=== PATIENT | female | born 1960 | race Caucasian/White ===

== ENCOUNTER 2016-06-19 05:42 | Day surgery (SDC) | payer OTHER ==
[2016-06-19 06:22] VITALS: O2SAT 100
[2016-06-19] MEDS ORDERED: Lactated Ringers 1,000 ML IV SCH (06:30)
[2016-06-19] MEDS ORDERED: Ketamine HCl 50 MG/ML IJ ONE (08:00)
[2016-06-19] MEDS ORDERED: DIPRIVAN 200 MG/20 ML IV ONE ×2 (08:00)
[2016-06-19 08:26] VITALS: BP 144/91; PULSE 70
--- NOTE | 2016-06-19 09:28 | OP ---
SURGERY DATE/TIME: 06/19/2016 0705 PREOPERATIVE DIAGNOSES: 1) History of colon polyps. 2) Crohn's disease. POSTOPERATIVE DIAGNOSES: 1) Normal colon. 2) Poor bowel prep. PROCEDURE: Colonoscopy. SURGEON: Christiano Luciano M.D. ANESTHESIA: MAC by Azael Mcbride CRNA. ESTIMATED BLOOD LOSS: None. SPECIMENS: None. DESCRIPTION OF PROCEDURE: After informed written consent was obtained, the patient was taken to the endoscopy suite. She underwent monitored anesthesia and digital rectal exam showed normal sphincter tone and no internal lesions. The scope was inserted in the rectum and sequentially the entire colonic mucosa was traversed. The level of cecum was reached and verified with direct visualization of the ileocecal valve. There was a large amount of semiliquid stool present throughout most of the length of the colon. The mucosal structures that were able to be inspected showed no gross abnormalities, there were no large polyps or other obvious lesions. The prep was noted to be poor. Upon withdrawal no obvious lesions were encountered. The scope was removed and the patient was transferred to the recovery room in excellent condition.
== END 2016-06-19 08:30 | disposition home or self-care (01) ==
LOC: SDC 05:42
PROVIDERS: ATTEND Family Medicine
PROC: 0DJD8ZZ Inspection of Lower Intestinal Tract, Via Natural or Artificial Opening Endoscopic (ICD-10-PCS; principal; 2016-06-19)
DX: Z86.010 Personal history of colon polyps (principal); K50.90 Crohn's disease, unspecified, without complications
CPT/HCPCS: 00810; J2704

== ENCOUNTER 2016-12-18 05:52 | Day surgery (SDC) | payer OTHER ==
[2016-12-18] MEDS ORDERED: DIPRIVAN 200 MG/20 ML IV ONE (05:53)
[2016-12-18] MEDS ORDERED: Ketamine HCl 50 MG/ML IV ONE (05:53)
[2016-12-18 06:27] VITALS: O2SAT 98
[2016-12-18] MEDS ORDERED: Lactated Ringers 1,000 ML IV SCH (06:30)
[2016-12-18 08:25] VITALS: BP 117/64; PULSE 68
--- NOTE | 2016-12-18 10:39 | OP ---
SURGERY DATE/TIME: 12/18/2016 0700 PREOPERATIVE DIAGNOSIS: Dysphagia. POSTOPERATIVE DIAGNOSIS: Normal exam. PROCEDURE: EGD. SURGEON: Christiano Luciano M.D. ANESTHESIA: MAC by Guillermo Mcbride CRNA. ESTIMATED BLOOD LOSS: None. SPECIMENS: None. DESCRIPTION OF PROCEDURE: After informed written consent was obtained, the patient was taken to the endoscopy suite. She underwent monitored anesthesia and a bite block was inserted. The endoscope was inserted into the posterior oropharynx and under direct visualization the esophagus was traversed. There were no obvious mucosal abnormalities in the esophageal region. The gastroesophageal junction appeared within normal limits. Upon entering the stomach there was normal rugated gastric mucosa free of any lesions or defects. The pylorus was traversed and the first and second portions of the duodenum was within normal limits. Upon withdrawal again careful mucosal inspection revealed no gross abnormalities. The scope was removed and the patient was transferred to the recovery room in excellent condition.
== END 2016-12-18 08:30 | disposition home or self-care (01) ==
LOC: SDC 05:52
PROVIDERS: ATTEND Family Medicine
PROC: 0DJ08ZZ Inspection of Upper Intestinal Tract, Via Natural or Artificial Opening Endoscopic (ICD-10-PCS; principal; 2016-12-18)
DX: R13.10 Dysphagia, unspecified (principal)
CPT/HCPCS: 00740; J2704

== ENCOUNTER 2022-08-12 09:20 | Day surgery (SDC) | payer OTHER ==
--- NOTE | 2022-08-12 09:14 | HP ---
DATE OF SURGERY: 08/12/2022 HISTORY OF PRESENT ILLNESS: The patient is a 62-year-old problem with food getting stuck in upper esophagus, sometimes even solids at time. Last upper endoscopy in 2006. Family history negative for esophageal cancer. PAST MEDICAL HISTORY: Partial plate dentures, hypertension, multiple sclerosis, hyperlipidemia, diabetes mellitus type II, irritable bowel Crohn's disease. PAST SURGICAL HISTORY: Coronary artery disease with stent placed in the past. Inguinal hernia repair. Ankle fracture in the past. Pilonidal cyst in the past. MEDICATIONS: Hydrocodone/acetaminophen, Xanax, spironolactone, Abilify, sertraline, vitamin D3, Benadryl, Metamucil, Norvasc, clonidine, aspirin, Toprol. ALLERGIES: ERYTHROMYCIN. LYRICA. PENICILLIN. SULFA. TETRACYCLINE. FAMILY HISTORY: Negative esophageal cancer. SOCIAL HISTORY: Former smoker. No alcohol abuse. REVIEW OF SYSTEMS: Fourteen systems reviewed per multiple medical problems as noted above. PHYSICAL EXAMINATION: VITALS: Height 5'5". BMI 33.38. GENERAL: A chronically ill female. HEENT: Sclerae nonicteric. EOMI. Oropharynx mucous membranes moist. NECK: No JVD. CHEST: Equal excursion, nonlabored breathing. CVS: Regular rate and rhythm. ABDOMEN: Soft. EXTREMITIES: No edema. NEURO: Alert. She has limitation from her MS. PSYCH: Appropriate mood and affect. SKIN: Dry. IMPRESSION: Dysphagia upper esophagus. I recommend EGD possible biopsy possible dilatation. General risk of bleeding or infection possibly requiring open procedure, risk of perforation possibly requiring further procedure or transfer for stent placement. Possibly no improvement in swallowing possibly requiring other procedures, dilation or referrals. Possibility of no narrowing to dilate or possible neurological or functional problem particularly given history of MS. Possibility dilatation may not improve her swallowing. If dilatation does improve might dilatation again down the road. She understands and agrees to the planned procedure. Will proceed with EGD possible biopsy possible dilatation as an outpatient.
[~2022-08-12 09:20] MED LIST: Lactated Ringers 1,000 ML IV SCH
[2022-08-12] MEDS ORDERED: Lactated Ringers 1,000 ML IV ONE (09:53)
[2022-08-12] MEDS ORDERED: DIPRIVAN 200 MG/20 ML IV ONE ×2 (11:44→11:57)
[2022-08-12] MEDS ORDERED: Versed 2 MG/2 ML Injection ONE (11:44)
[2022-08-12 12:37] VITALS: O2SAT 96
[2022-08-12 12:48] VITALS: BP 130/94; PULSE 53
--- NOTE | 2022-08-13 08:05 | OP ---
SURGERY DATE/TIME: 08/12/2022 1142 PREOPERATIVE DIAGNOSIS: Dysphagia. POSTOPERATIVE DIAGNOSES: 1) Minimal to mild gastritis. 2) Symptomatic proximal esophageal narrowing and spasm. PROCEDURES: 1) EGD with cold biopsy to antrum to evaluate for Helicobacter pylori. 2) Cold biopsy distal esophageal erythema. 3) Cold biopsy mid esophagus to evaluate for eosinophilic esophagitis. 4) Esophageal dilatation proximal esophageal narrowed and spasm area (size 20 balloon dilator). SURGEON: Dr. Guillermo Kumar. ANESTHESIA: MAC. ESTIMATED BLOOD LOSS: Minimal. INDICATIONS: As noted above. Risks and benefits explained in detail and not limited to and consent was obtained. DESCRIPTION OF PROCEDURE AND FINDINGS: The patient is taken to the endoscopy room. MAC anesthesia introduced. After official time out and no disagreement with planned procedure, bite block positioned. Video gastroscope easily passed down the oropharynx. There was a little bit of proximal esophageal narrowing and spasm. She is having symptoms here. It was felt worthwhile to dilate this at the end of the procedure. The scope was able to be passed back through here down to the junction of the second and third portion of the duodenum. Duodenum grossly unremarkable. The scope is carefully withdrawn. Back in the stomach had some mild gastric erythema and some congestion. Cold biopsy taken to evaluate for some minimal to mild gastritis and to evaluate for Helicobacter pylori. Good hemostasis noted. On retroflex, the gastroesophageal junction snug against the scope. The scope is straightened. The gastroesophageal junction is about 39 cm. In the distal esophagus, there is no gross evidence of erosions or Mancia's. There was a slight pinkness of the distal esophagus. Cold biopsy is taken to evaluate for inflammation. Good hemostasis noted. Random cold biopsies taken in the mid esophagus to evaluate for eosinophilic esophagitis. Good hemostasis noted. Otherwise again it was felt this proximal esophageal narrowing warranted dilatation. There were no signs of any obvious mass or lesion to biopsy. The scope is passed back down the stomach. A 20 balloon dilator carefully inserted. It was pulled back up to the proximal esophageal narrowed area where it was carefully inflated. First stage for 30 seconds size 18, second stage 30 seconds size 19, final stage size 20 balloon dilator for 2 minutes. Balloon catheter then released and withdrawn. The scope much more easily passed through this area back into the stomach and then carefully withdrawn. There was small abrasion in the mucosa but there did not appear to be any evidence of any full thickness issues secondary to dilatation. Appeared to have adequate hemostasis. The scope is withdrawn. Findings discussed with the family out in the waiting area.
== END 2022-08-12 12:57 | disposition home or self-care (01) ==
LOC: SDC 09:20
PROVIDERS: ATTEND Surgery
DX: K29.70 Gastritis, unspecified, without bleeding (principal); R13.10 Dysphagia, unspecified; E11.9 Type 2 diabetes mellitus without complications; K22.2 Esophageal obstruction
CPT/HCPCS: 82947; C1726; J2250; J2704

== ENCOUNTER 2022-12-20 14:34 | Emergency (ER) | payer OTHER ==
--- NOTE | 2022-12-20 14:43 | ERPHSYRPT ---
- History of Present Illness Time Seen by Provider: 12/20/22 14:42 Source: patient Exam Limitations: no limitations Physician History: This is a 62-year-old obese white female patient of Dr. Alonso who presents with numbness in her right upper extremity and tongue that deviated to the right beginning greater than 24 hours. She states that on 12/19/2022, in the morning, she noticed the symptoms being present. The symptom of numbness is nowhere else in her body. The tongue deviation to the right has significantly improved per her report. There is still some numbness in her right upper extremity. She did not hit her head. She has no history of a CVA. 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 Patient drove herself to the emergency depar tment. She has been somewhat nauseated intermittently without vomiting. She denies chest pain, she denies shortness of breath. She also denies fevers and chills. She denies vomiting and diarrhea. She has no abdominal pain. She has no headache. Patient has multiple medical problems including hypertension, diabetes, irritable bowel syndrome, Crohn's disease and depression. Timing/Duration: yesterday Severity: mild Character of Deficits: RUE (Numbness mild) Deficits: no difficulties Baseline/Normal Cognition: alert oriented x 3 Current Cognition: alert oriented x 3 Baseline Gait: uses cane Associated Symptoms: paresthesia (Right upper extremity which is only in the right upper extremity and has improved in the last 24 hours) Allergies/Adverse Reactions: erythromycin base [Erythromycin Base] Allergy (Verified 12/20/22 14:46) lidocaine Allergy (Verified 12/20/22 14:46) Penicillins Allergy (Verified 12/20/22 14:46) pregabalin [From Lyrica] Allergy (Verified 12/20/22 14:46) Sulfa (Sulfonamide Antibiotics) Allergy (Verified 12/20/22 14:46) Tetracyclines Allergy (Verified 12/20/22 14:46) Home Medications: Baclofen 10 mg [Lioresal 10 mg] 10 mg PO BID 01/06/13 [History] Metoprolol Succinate 100 mg [Toprol Xl 100 MG] 100 mg PO DAILY 01/06/13 [History] Ropinirole HCl [Requip] 1 mg PO HS 01/06/13 [History] Aspirin 81 mg PO DAILY 06/13/16 [History] Calcium Carb,Gluc/Mag Ox,Gluc [Calcium Magnesium Caplet] 1 each PO DAILY 06/13/16 [History] Diphenhydramine HCl 25 mg [Benadryl 25 mg Capsule] 75 mg PO HS 06/13/16 [History] Metformin HCl 500 mg [Glucophage 500 MG] 500 mg PO BID 06/13/16 [History] Sertraline HCl [Zoloft] 100 mg PO DAILY 06/13/16 [History] Ergocalciferol (Vitamin D2) [Vitamin D2] 50,000 unit PO Q7D 11/22/16 [History] Hydrocodone/Acetaminophen [Hydrocodone-Acetamin 5-325 mg] 1 each PO Q4HPRN PRN 11/22/16 [History] Amlodipine Besylate 5 mg [Norvasc 5 mg] 5 mg DAILY 08/12/22 [History] Clonidine HCl 0.1 mg [Clonidine 0.1 mg Tablet] 0.1 mg PO BID 08/12/22 [History] Ezetimibe 10 mg [Zetia 10 MG] 10 mg DAILY 08/12/22 [History] Psyllium Packet [Metamucil PACKET] 1 pkt PO DAILY 08/12/22 [History] Spironolactone 25 mg [Aldactone 25 MG] 25 mg PO DAILY 08/12/22 [History] Hx Tetanus, Diphtheria Vaccination/Date Given: Yes Hx Influenza Vaccination/Date Given: No Hx Pneumococcal Vaccination/Date Given: No Travel Risk - International Travel Have you traveled outside of the country in past 3 weeks: No - Coronavirus Screening Are you exhibiting any of the following symptoms?: No Close contact with a COVID-19 positive Pt in past 14-21 Days: No - Review of Systems Constitutional: No Symptoms Eyes: No Symptoms Ears, Nose, & Throat: No Symptoms Respiratory: No Symptoms Cardiac: No Symptoms Abdominal/Gastrointestinal: No Symptoms Genitourinary Symptoms: No Symptoms Musculoskeletal: No Symptoms Skin: No Symptoms Neurological: Other (Numbness to the right upper extremity) Psychological: No Symptoms Endocrine: No Symptoms Hematologic/Lymphatic: No Symptoms Immunological/Allergic: No Symptoms All Other Systems: Reviewed and Negative - Past Medical History Pertinent Past Medical History: Yes Neurological History: Other ENT History: No Pertinent History Cardiac History: Hypertension, Other Respiratory History: No Pertinent History Endocrine Medical History: Other Musculoskeletal History: Fractures GI Medical History: Irritable Bowel, Crohns Disease History: No Pertinent History Psycho-Social History: Depression Female Reproductive Disorders: No Pertinent History Other Medical History: DX'D WITH MULTIPLE SCLEROSIS 1989 (RELAPSING/REMITTING WITH NO RECENT RELAPSE AND USUALLY ONLY INVOLVES HER EYES). OTHER PMHX CROHN'S, INSULIN RESISTANT, ELEVATED TRIGLYCERIDES, AORTIC ANEURYSM, ECZEMA, PSORIASIS - Past Surgical History Past Surgical History: Yes Neuro Surgical History: No Pertinent History Cardiac: Cardiac Catheterization Respiratory: No Pertinent History Gastrointestinal: Hernia Repair Genitourinary: No Pertinent History Musculoskeletal: Orthopedic Surgery Female Surgical History: No Pertinent History Other Surgical History: LEEP PROCEDURE. PYLONITAL CYST,right ankle repair with plates,pins and screws. removal of lipoma. tumor removed to right foot with hammer toe repair. EGD,colonsocopy times 2 - Social History Smoking Status: Former smoker Exposure to second hand smoke: No Drug Use: none Patient Lives Alone: No - Nursing Vital Signs Nursing Vital Signs: Initial Vital Signs Temperature 96.8 F 12/20/22 14:35 Pulse Rate 65 12/20/22 14:35 Blood Pressure 148/88 12/20/22 14:35 O2 Sat by Pulse Oximetry 97 12/20/22 14:35 Pain Scale Pain Intensity 0 - Mihir Coma Scale Best Eye Response ([place]): (4) open spontaneously Best Verbal Response ([place]): (5) oriented Best Motor Response ([place]): (6) obeys commands Mihir Total: 15 - Physical Exam General Appearance: no apparent distress, alert, anxiety, obese Eye Exam: bilateral eye: normal inspection, PERRL, EOMI Ears, Nose, Throat Exam: normal ENT inspection, TMs normal, pharynx normal, moist mucous membranes Neck Exam: normal inspection, non-tender, supple, full range of motion Respiratory: normal breath sounds, lungs clear, airway intact, No chest tenderness, No respiratory distress Cardiovascular: regular rate/rhythm, normal heart sounds, normal peripheral pulses Gastrointestinal: soft, normal bowel sounds, No tenderness Pelvic Exam: not done Rectal Exam: not done Back Exam: normal inspection, normal range of motion, No CVA tenderness, No vertebral tenderness Extremity Exam: normal inspection, normal range of motion, pelvis stable Mental Status: alert, oriented x 3, cooperative anesthesiology tech Exam: normal hearing, normal speech, abnormal eye position, tongue midline Coordination/Gait: normal finger to nose, normal gait, normal cerebellar function Motor/Sensory: no motor deficit, no sensory deficit Skin Exam: normal color, warm, dry SpO2 Interpretation: normal O2 Delivery: Room Air - Course Nursing assessment & vital signs reviewed: Yes EKG Interpreted by Me: RATE (65), Sinus Rhythm, NORMAL AXIS, NORMAL INTERVALS, NORMAL QRS, NORMAL ST-T, Other (No acute ischemic changes on today's twelve-lead EKG.) Ordered Tests: Active Orders 24 hr Category Date Time 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 Care 12/20/22 14:47 Active EKG-ER Only STAT Care 12/20/22 14:46 Active IV Insertion STAT Care 12/20/22 14:46 Active NPO (ED) STAT Care 12/20/22 14:46 Active Pulse Oximetry (ED) STAT Care 12/20/22 14:46 Active HEAD WITHOUT CONTRAST [CT] Stat Exams 12/20/22 14:46 Completed CBC W DIFF Stat Lab 12/20/22 14:15 Completed CMP Stat Lab 12/20/22 14:15 Completed MAG [MAGNESIUM] Stat Lab 12/20/22 14:15 Completed Lab/Rad Data: Laboratory Result Diagrams 12/20/22 14:15 12/20/22 14:15 Laboratory Results 12/20/22 12/20/22 12/20/22 Range/Units 14:15 14:15 14:15 WBC 7.2 (4.0-10.5) x10^3/uL RBC 4.36 (4.1-5.4) x10^6/uL Hgb 13.7 (12.0-16.0) g/dL Hct 40.9 (35-47) % MCV 93.8 (78-100) fL MCH 31.4 (26-32) pg MCHC 33.5 (32-36) g/dL RDW 13.6 (11.5-14.0) % Plt Count 177 (150-450) x10^3/uL MPV 9.5 (7.5-11.0) fL Gran % 54.4 (36.0-66.0) % Immature Gran % (Auto) 0.1 (0.00-0.4) % Nucleat RBC Rel Count 0.0 (0.00-0.1) % Eos # (Auto) 0.16 (0-0.5) x10^3/uL Immature Gran # (Auto) 0.01 (0.00-0.03) x10^3u/L Absolute Lymphs (auto) 2.51 (1.0-4.6) x10^3/uL Absolute Monos (auto) 0.57 (0.0-1.3) x10^3/uL Absolute Nucleated RBC 0.00 (0.00-0.01) x10^3u/L Lymphocytes % 35.0 (24.0-44.0) % Monocytes % 7.9 (0.0-12.0) % Eosinophils % 2.2 (0.00-5.0) % Basophils % 0.4 (0.0-0.4) % Absolute Granulocytes 3.89 (1.4-6.9) x10^3/uL Basophils # 0.03 (0-0.4) x10^3/uL Sodium 136 L (137-145) mmol/L Potassium 4.2 (3.5-5.1) mmol/L Chloride 101 (98-107) mmol/L Carbon Dioxide 26 (22-30) mmol/L Anion Gap 13.1 (5-15) MEQ/L BUN 9 (7-17) mg/dL Creatinine 0.76 (0.52-1.04) mg/dL Estimated GFR > 60.0 ML/MIN Glucose 127 H (74-106) mg/dL Calcium 9.1 (8.4-10.2) mg/dL Magnesium 1.9 (1.6-2.3) mg/dL Total Bilirubin 0.30 (0.2-1.3) mg/dL AST 30 (14-36) U/L ALT 25 (0-35) U/L Alkaline Phosphatase 57 (38-126) U/L Serum Total Protein 7.7 (6.3-8.2) g/dL Albumin 4.3 (3.5-5.0) g/dL - Progress Progress: improved, re-examined Progress Note: 12/20/22 15:59 This patient's medical issue is 1 of moderate complexity. The level complex in the work-up performed is based on review of the patient's past medical history, review the patient's medication list, review the patient's drug allergy list, history present illness and physical findings on examination. The work-up in this patient includes placement of intravenous line, twelve-lead EKG, troponin level, CBC, CMP, PT/INR, T4 and TSH, CT scan of the head and urinalysis. 12/20/22 16:06 I reviewed and interpreted the patient's laboratory data. There is no evidence of any acute, emergent laboratory study results. The CT scan of the head without contrast was interpreted by the radiologist and I reviewed the impression. There is reported a normal CT scan of the head without contrast. Counseled pt/family regarding: lab results, diagnosis, need for follow-up, rad results Medical Desision Making - Diagnostic Testing Diagnostic test were ordered, analyzed, and reviewed by me: Yes Radiological Interpretation: Reviewed by me, Teleradiologist Report - Risk of complications Low Risk: Low risk of morbidity from additional dx testing or treatment - Departure Departure Disposition: Home Clinical Impression: Right arm numbness Condition: Stable Critical Care Time: No Referrals: LEEROY ALONSO MD [Primary Care Provider] - Follow up/PCP as directed Additional Instructions: Drink plenty of fluids. Take your medication as prescribed. Call your primary care provider on 12/23/2022 to make arrangements for further evaluation management. Return to the emergency department if the symptoms recur.
[2022-12-20 14:46] VITALS: TEMP 96.8
[2022-12-20 14:59] LABS: Absolute Neutrophil Ct (ANC) 3.89 x10^3/uL (1.4-6.9); BASOPHIL % 0.4 % (0.0-0.4); Basophil (Absolute #) 0.03 x10^3/uL (0-0.4); Eosinophil % 2.2 % (0.00-5.0); Eosinophil (Absolute #) 0.16 x10^3/uL (0-0.5); Hematocrit 40.9 % (35-47); Hemoglobin 13.7 g/dL (12.0-16.0); IMMATURE GRAN # 0.01 x10^3u/L (0.00-0.03); IMMATURE GRAN % 0.1 % (0.00-0.4); Lymphocyte (Absolute #) 2.51 x10^3/uL (1.0-4.6); Mean Cell Volume 93.8 fL (78-100); Mean Corpuscular Hemoglobin 31.4 pg (26-32); Mean Corpuscular Hgb Concent. 33.5 g/dL (32-36); Mean Platelet Volume 9.5 fL (7.5-11.0); Monocyte (Absolute #) 0.57 x10^3/uL (0.0-1.3); Monocytes % 7.9 % (0.0-12.0); Neutrophil % 54.4 % (36.0-66.0); Platelet Count 177 x10^3/uL (150-450); Red Blood Count 4.36 x10^6/uL (4.1-5.4); Red Cell Distribution Width 13.6 % (11.5-14.0); White Blood Count 7.2 x10^3/uL (4.0-10.5)
--- NOTE | 2022-12-20 15:35 | XRAY ---
Indication: Right upper extremity weakness 6 days. Multiple contiguous axial images obtained through the head without contrast. Comparison: None Normal appearing brain parenchyma, ventricles, and bony calvarium. Visualized paranasal sinuses and mastoid air cells are clear. Impression: Normal CT head without contrast exam.
[2022-12-20 15:37] LABS: ALBUMIN 4.3 g/dL (3.5-5.0); ALKALINE PHOSPHATASE 57 U/L (38-126); ANION GAP 13.1 MEQ/L (5-15); BLOOD UREA NITROGEN 9 mg/dL (7-17); CHLORIDE 101 mmol/L (98-107); Calcium 9.1 mg/dL (8.4-10.2); Carbon Dioxide 26 mmol/L (22-30); Creatinine 1 0.76 mg/dL (0.52-1.04); EST GLOMERULAR FILTRATION RATE > 60.0 ML/MIN; Glucose 127 mg/dL (74-106); Potassium 4.2 mmol/L (3.5-5.1); SGOT/AST 30 U/L (14-36); SGPT/ALT 25 U/L (0-35); SODIUM 136 mmol/L (137-145); Total Protein 7.7 g/dL (6.3-8.2)
[2022-12-20 16:10] VITALS: BP 105/70; PULSE 62; RESP 21; O2SAT 96
== END 2022-12-20 16:41 | disposition home or self-care (01) ==
LOC: ED 14:34
DX: R20.2 Paresthesia of skin (principal); I10 Essential (primary) hypertension; E11.9 Type 2 diabetes mellitus without complications; Z79.84 Long term (current) use of oral hypoglycemic drugs; Z79.899 Other long term (current) drug therapy
CPT/HCPCS: 36000; 36415; 70450; 80053; 83735; 85025; 93005; 93041; 94760; 99284

== ENCOUNTER 2023-09-09 20:56 | Emergency (ER) | payer OTHER ==
[2023-09-09 21:14] VITALS: TEMP 97.2
--- NOTE | 2023-09-09 21:46 | ERPHSYRPT ---
- History of Present Illness Time Seen by Provider: 09/09/23 21:30 Source: patient Exam Limitations: no limitations Patient Subjective Stated Complaint: leg swelling primarily in the R leg that started on august 19 but worsening swelling in the last 2 days Triage Nursing Assessment: pt ambulatory to bed by self, friend at bedside, pt alert and oriented x3, pt presents with R leg swelling of +2 pitting edema that has worsened over the last 2 days, afebrile, +2 strong pedal pulses bilaterally, pt c/o pain from knee down to her toes on the R leg. reddness noted on bilateral lower legs Physician History: 63-year-old female presents to emergency department for evaluation of purpura to her right lower extremity just proximal to her ankle. Patient has petechiae forming at the left lower leg just proximal to the ankle as well. However the right is worse than the left in terms of pain. No trauma no fever. Patient has been walking more than normal. Patient currently on Xarelto for atrial fibrillation. She also has scattered bruising throughout both upper extremities which she attributes to her blood thinner. No other complaints. No chest pain or shortness of breath. No nausea vomiting or diaphoresis. Patient concerned with circulation. However patient's neurovascular status is intact. at bedside. They voiced no other complaints or concerns at this time. Portions of this note were created with voice recognition technology. There may be grammatical, spelling, punctuation or sound alike errors Timing/Duration: today Severity: moderate Modifying Factors: Improves With: nothing Associated Symptoms: denies symptoms Allergies/Adverse Reactions: erythromycin base [Erythromycin Base] Allergy (Verified 09/09/23 21:05) Penicillins Allergy (Verified 09/09/23 21:05) pregabalin [From Lyrica] Allergy (Verified 09/09/23 21:05) Sulfa (Sulfonamide Antibiotics) Allergy (Verified 09/09/23 21:05) Tetracyclines Allergy (Verified 09/09/23 21:05) Home Medications: Baclofen 10 mg [Lioresal 10 mg] 10 mg PO BID 01/06/13 [History] Metoprolol Succinate 100 mg [Toprol Xl 100 MG] 100 mg PO DAILY 01/06/13 [History] Ropinirole HCl [Requip] 3 mg PO HS 01/06/13 [History] Aspirin 81 mg PO DAILY 06/13/16 [History] Calcium Carb,Gluc/Mag Ox,Gluc [Calcium Magnesium Caplet] 1 each PO HS 06/13/16 [History] Sertraline HCl [Zoloft] 50 mg PO DAILY 06/13/16 [History] Ergocalciferol (Vitamin D2) [Vitamin D2] 50,000 unit PO Q7D 11/22/16 [History] Hydrocodone/Acetaminophen [Hydrocodone-Acetamin 5-325 mg] 1 each PO Q4HPRN PRN 11/22/16 [History] Amlodipine Besylate 5 mg [Norvasc 5 mg] 5 mg PO DAILY 08/12/22 [History] Psyllium Packet [Metamucil PACKET] 1 pkt PO DAILY 08/12/22 [History] Spironolactone 25 mg [Aldactone 25 MG] 25 mg PO DAILY 08/12/22 [History] Gabapentin 100 mg PO TID 09/09/23 [History] Rivaroxaban [Xarelto] 20 mg PO DAILY 09/09/23 [History] Hx Tetanus, Diphtheria Vaccination/Date Given: Yes Hx Influenza Vaccination/Date Given: Yes Hx Pneumococcal Vaccination/Date Given: No Immunizations Up to Date: No Travel Risk - International Travel Have you traveled outside of the country in past 3 weeks: No - Emerging Infectious Disease Are you exhibiting symptoms associated with any current EIDs: No - Review of Systems Constitutional: No Symptoms, No Fever, No Chills Eyes: No Symptoms Ears, Nose, & Throat: No Symptoms Respiratory: No Symptoms, No Cough, No Dyspnea Cardiac: No Symptoms, No Chest Pain, No Edema, No Syncope Abdominal/Gastrointestinal: Constipation, No Abdominal Pain, No Nausea, No Vomiting, No Diarrhea Genitourinary Symptoms: No Symptoms, No Dysuria Musculoskeletal: No Symptoms, No Back Pain, No Neck Pain Skin: No Symptoms, No Rash Neurological: No Symptoms, No Dizziness, No Focal Weakness, No Sensory Changes Psychological: No Symptoms Endocrine: No Symptoms Hematologic/Lymphatic: No Symptoms Immunological/Allergic: No Symptoms All Other Systems: Reviewed and Negative - Past Medical History Pertinent Past Medical History: Yes Neurological History: Peripheral Neuropathy, Other ENT History: No Pertinent History Cardiac History: Aneurysm, Arrhythmia, High Cholesterol, Other Respiratory History: No Pertinent History Endocrine Medical History: Other Musculoskeletal History: Fibromyalgia, Osteoarthritis GI Medical History: Irritable Bowel, Crohns Disease History: No Pertinent History Psycho-Social History: Depression Female Reproductive Disorders: No Pertinent History Other Medical History: MULTIPLE SCLEROSIS. 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 HAS A "LEAKY" VALVE AND ONE THAT DOESN'T OPEN ALL THE WAY. NO TREATMENT TO DATE. HAS AAA WHICH IS MONITORED REGULARLY - Past Surgical History Past Surgical History: Yes Neuro Surgical History: No Pertinent History Cardiac: Cardiac Catheterization Respiratory: No Pertinent History Gastrointestinal: Hernia Repair Genitourinary: No Pertinent History Musculoskeletal: Orthopedic Surgery Female Surgical History: No Pertinent History Other Surgical History: LEEP PROCEDURE. PYLONITAL CYST,right ankle repair with plates,pins and screws. removal of lipoma. tumor removed to right foot with hammer toe repair. EGD,colonsocopy times 2. carotid - Social History Smoking Status: Former smoker Exposure to second hand smoke: No Drug Use: none Patient Lives Alone: No - Social Determinants of Health Will the patient participate in the screening: Yes Do you worry about a steady place to live?: No Do you have any problems with any of the following?: No known problems In the past 12 months,have you had to go without utilities?: No Transportation Issues: No Has anyone in your support network made you feel unsafe?: No Have you or anyone in your house had to go without enough: No - Nursing Vital Signs Nursing Vital Signs: Initial Vital Signs Pulse Rate 71 09/09/23 21:03 Respiratory Rate 17 09/09/23 21:03 Blood Pressure 107/69 09/09/23 21:03 O2 Sat by Pulse Oximetry 96 09/09/23 21:03 Pain Scale Pain Intensity 6 - Physical Exam General Appearance: no apparent distress, alert Eye Exam: PERRL/EOMI, eyes nml inspection Ears, Nose, Throat Exam: normal ENT inspection, TMs normal, pharynx normal, moist mucous membranes Neck Exam: normal inspection, non-tender, supple, full range of motion Respiratory Exam: normal breath sounds, lungs clear, airway intact, No respiratory distress Cardiovascular Exam: regular rate/rhythm, normal heart sounds, normal peripheral pulses Gastrointestinal/Abdomen Exam: soft, normal bowel sounds, No tenderness, No mass Back Exam: normal inspection, normal range of motion, No CVA tenderness, No vertebral tenderness Extremity Exam: normal inspection, normal range of motion, pelvis stable Neurologic Exam: alert, oriented x 3, cooperative, normal mood/affect, sensation nml, No motor deficits Skin Exam: normal color, warm, dry, No rash Lymphatic Exam: No adenopathy SpO2 Interpretation: normal SpO2: 97 O2 Delivery: Room Air - Course Nursing assessment & vital signs reviewed: Yes Ordered Tests: Active Orders 24 hr Category Date Time Status CBC W DIFF Stat Lab 09/09/23 21:40 Completed CMP Stat Lab 09/09/23 21:40 Completed PROTIME WITH INR Stat Lab 09/09/23 21:41 Completed PTT Stat Lab 09/09/23 21:41 Completed UA W/RFX UR CULTURE Stat Lab 09/09/23 23:01 Completed Lab/Rad Data: Laboratory Result Diagrams 09/09/23 21:40 09/09/23 21:40 Laboratory Results 09/09/23 09/09/23 09/09/23 Range/Units 23:01 21:41 21:40 WBC (3.98-10.04) x10^3/uL RBC (3.93-5.22) x10^6/uL Hgb (11.2-15.7) g/dL Hct (34.1-44.9) % MCV (79.4-94.8) fL MCH (25.6-32.2) pg MCHC (32.2-35.5) g/dL RDW (11.7-14.4) % Plt Count (182-369) x10^3/uL MPV (9.4-12.3) fL Gran % (34.0-71.1) % Immature Gran % (Auto) (0.001-0.429) % Nucleat RBC Rel Count (0.00-0.2) % Eos # (Auto) (0.04-0.36) x10^3/uL Immature Gran # (Auto) (0.001-0.031) x10^3u/L Absolute Lymphs (auto) (1.18-3.74) x10^3/uL Absolute Monos (auto) (0.24-0.86) x10^3/uL Absolute Nucleated RBC (0.00-0.012) x10^3u/L Lymphocytes % (19.3-51.7) % Monocytes % (4.7-12.5) % Eosinophils % (0.7-5.8) % Basophils % (0.1-1.2) % Absolute Granulocytes (1.56-6.13) x10^3/uL Basophils # (0.01-0.08) x10^3/uL PT 10.9 (9.4-12.5) SECONDS INR 1.00 (0.8-3.0) APTT 29.8 (25.1-36.5) SECONDS Sodium 137 (135-145) mmol/L Potassium 3.7 (3.5-5.1) mmol/L Chloride 100 (98-107) mmol/L Carbon Dioxide 30 (22-30) mmol/L Anion Gap 10.4 (5-15) MEQ/L BUN 19 H (7-17) mg/dL Creatinine 0.91 (0.52-1.04) mg/dL Estimated GFR 71.8 ML/MIN Glucose 210 H (74-106) mg/dL Calcium 9.5 (8.4-10.2) mg/dL Total Bilirubin 0.20 (0.2-1.3) mg/dL AST 25 (14-36) U/L ALT 20 (0-35) U/L Alkaline Phosphatase 54 (38-126) U/L Serum Total Protein 6.7 (6.3-8.2) g/dL Albumin 3.8 (3.5-5.0) g/dL Urine Color Yellow (Yellow) Urine Appearance Clear (Clear) Urine pH 5.5 (4.6-8.0) Ur Specific [place] 1.025 (1.005-1.030) Urine Protein Negative (Negative) Urine Glucose (UA) Negative (Negative) mg/dL Urine Ketones Trace A (Negative) Urine Blood Negative (Negative) Urine Nitrite Negative (Negative) Urine Bilirubin Negative (Negative) Urine Urobilinogen 0.2 (0.2) mg/dL Ur Leukocyte Esterase Negative (Negative) U Hyaline Cast (Auto) NONE SEEN (0-2) /LPF Urine Microscopic RBC 0-2 (0-5) /HPF Urine Microscopic WBC 0-2 (0-5) /HPF Ur Epithelial Cells None Seen (None Seen) /HPF Urine Bacteria None Seen (None Seen) /HPF Urine Culture Reflexed NO (NO) 09/09/23 Range/Units 21:40 WBC 7.1 (3.98-10.04) x10^3/uL RBC 3.57 L (3.93-5.22) x10^6/uL Hgb 9.5 L (11.2-15.7) g/dL Hct 30.4 L (34.1-44.9) % MCV 85.2 (79.4-94.8) fL MCH 26.6 (25.6-32.2) pg MCHC 31.3 L (32.2-35.5) g/dL RDW 13.9 (11.7-14.4) % Plt Count 172 L (182-369) x10^3/uL MPV 9.9 (9.4-12.3) fL Gran % 62.6 (34.0-71.1) % Immature Gran % (Auto) 0.3 (0.001-0.429) % Nucleat RBC Rel Count 0.0 (0.00-0.2) % Eos # (Auto) 0.24 (0.04-0.36) x10^3/uL Immature Gran # (Auto) 0.02 (0.001-0.031) x10^3u/L Absolute Lymphs (auto) 1.90 (1.18-3.74) x10^3/uL Absolute Monos (auto) 0.45 (0.24-0.86) x10^3/uL Absolute Nucleated RBC 0.00 (0.00-0.012) x10^3u/L Lymphocytes % 26.9 (19.3-51.7) % Monocytes % 6.4 (4.7-12.5) % Eosinophils % 3.4 (0.7-5.8) % Basophils % 0.4 (0.1-1.2) % Absolute Granulocytes 4.43 (1.56-6.13) x10^3/uL Basophils # 0.03 (0.01-0.08) x10^3/uL PT (9.4-12.5) SECONDS INR (0.8-3.0) APTT (25.1-36.5) SECONDS Sodium (135-145) mmol/L Potassium (3.5-5.1) mmol/L Chloride (98-107) mmol/L Carbon Dioxide (22-30) mmol/L Anion Gap (5-15) MEQ/L BUN (7-17) mg/dL Creatinine (0.52-1.04) mg/dL Estimated GFR ML/MIN Glucose (74-106) mg/dL Calcium (8.4-10.2) mg/dL Total Bilirubin (0.2-1.3) mg/dL AST (14-36) U/L ALT (0-35) U/L Alkaline Phosphatase (38-126) U/L Serum Total Protein (6.3-8.2) g/dL Albumin (3.5-5.0) g/dL Urine Color (Yellow) Urine Appearance (Clear) Urine pH (4.6-8.0) Ur Specific [place] (1.005-1.030) Urine Protein (Negative) Urine Glucose (UA) (Negative) mg/dL Urine Ketones (Negative) Urine Blood (Negative) Urine Nitrite (Negative) Urine Bilirubin (Negative) Urine Urobilinogen (0.2) mg/dL Ur Leukocyte Esterase (Negative) U Hyaline Cast (Auto) (0-2) /LPF Urine Microscopic RBC (0-5) /HPF Urine Microscopic WBC (0-5) /HPF Ur Epithelial Cells (None Seen) /HPF Urine Bacteria (None Seen) /HPF Urine Culture Reflexed (NO) - Progress Progress: improved Progress Note: 63-year-old female presents to our ED for evaluation of redness to her lower extremity. Physical exam reveals purpura to her right lower extremity and ecchymosis to the left lower extremity. Patient is on Xarelto for A-fib. Patient advised that she had a bloody bowel movement approximately 2 to 3 weeks ago. However she has not seen gross blood since. Patient also has bruising at both upper extremities. Platelets are 172. Coags are normal. Liver function appears normal. Patient advised to follow-up with their primary care doctor to reevaluate her anticoagulation. Patient declined pain medication. Patient states she is on [place] at home that she will take. Patient also mentioned that she observed that she feels she is urinating more frequent. UA negative for UTI. Will discharge home. Patient agrees to follow-up with her primary care doctor within 48 hours for reevaluation. Of note patient had a right lower extremity ultrasound performed 2 to 3 weeks ago. Negative for DVT. Patient's pain is the same as it was back then. Patient's concern is the petechiae/purpura Portions of this note were created with voice recognition technology. There may be grammatical, spelling, punctuation or sound alike errors Complexity problem addressed is moderate acute complicated. No critical care time. Complexity of data reviewed and analyzed is moderate. Test ordered test reviewed results analyzed and correlated clinically with history and physical exam. Risk of complication and or risk of morbidity/mortality patient management is low. Vital stable. Time spent to discharge patient approximately 20 minutes. Plan of care established for shared decision making. No social determinants of health present impede follow-up. Portions of this note were created with voice recognition technology. There may be grammatical, spelling, punctuation or sound alike errors 09/09/23 23:48 09/09/23 23:53 Counseled pt/family regarding: lab results, diagnosis, need for follow-up - Departure Departure Disposition: Home Clinical Impression: Lower extremity purpura, Petechiae Condition: Stable Critical Care Time: No Referrals: LEEROY ALONSO MD [Primary Care Provider] - Follow up/PCP as directed Additional Instructions: Discharge/Care Plan THA FAUST NICK was seen on 09/09/23 in the Emergency Room. The patient was counseled regarding Diagnosis,Lab results, Imaging studies, need for follow up and when to return to the Emergency Room. Prescriptions given: Discharge Note I have spoken with the patient and/or caregivers. I have explained the patient's condition, diagnosis and treatment plan based on the information available to me at this time. I have answered the patient's and/or caregiver's questions and addressed any concerns. The patient and/or caregivers have as good understanding of the patient's diagnosis, condition and treatment plan as can be expected at this point. The vital signs have been stable. The patient's condition is stable and appropriate for discharge from the emergency department. The patient will pursue further outpatient evaluation with the primary care physician or other designated or consulting physician as outlined in the discharge instructions. The patient and/or caregivers are agreeable to this plan of care and follow-up instructions have been explained in detail. The patient and/or caregivers have received these instruction. The patient/and or caregivers are aware that any significant change in condition or worsening of symptoms should prompt an immediate return to this or the closest emergency department or call 911.
[2023-09-09 21:52] LABS: Absolute Neutrophil Ct (ANC) 4.43 x10^3/uL (1.56-6.13); BASOPHIL % 0.4 % (0.1-1.2); Basophil (Absolute #) 0.03 x10^3/uL (0.01-0.08); Eosinophil % 3.4 % (0.7-5.8); Eosinophil (Absolute #) 0.24 x10^3/uL (0.04-0.36); Hematocrit 30.4 % (34.1-44.9); Hemoglobin 9.5 g/dL (11.2-15.7); IMMATURE GRAN # 0.02 x10^3u/L (0.001-0.031); IMMATURE GRAN % 0.3 % (0.001-0.429); Lymphocytes % 26.9 % (19.3-51.7); Mean Cell Volume 85.2 fL (79.4-94.8); Mean Corpuscular Hemoglobin 26.6 pg (25.6-32.2); Mean Corpuscular Hgb Concent. 31.3 g/dL (32.2-35.5); Mean Platelet Volume 9.9 fL (9.4-12.3); Monocyte (Absolute #) 0.45 x10^3/uL (0.24-0.86); Monocytes % 6.4 % (4.7-12.5); Neutrophil % 62.6 % (34.0-71.1); Platelet Count 172 x10^3/uL (182-369); Red Blood Count 3.57 x10^6/uL (3.93-5.22); Red Cell Distribution Width 13.9 % (11.7-14.4); White Blood Count 7.1 x10^3/uL (3.98-10.04)
[2023-09-09 22:06] LABS: ALBUMIN 3.8 g/dL (3.5-5.0); ANION GAP 10.4 MEQ/L (5-15); BILIRUBIN,TOTAL 0.2 mg/dL (0.2-1.3); Calcium 9.5 mg/dL (8.4-10.2); Creatinine 1 0.91 mg/dL (0.52-1.04); EST GLOMERULAR FILTRATION RATE 71.8 ML/MIN; Potassium 3.7 mmol/L (3.5-5.1); Total Protein 6.7 g/dL (6.3-8.2)
[2023-09-09 22:07] LABS: PROTIME 10.9 SECONDS (9.4-12.5); PTT 29.8 SECONDS (25.1-36.5)
[2023-09-09 23:14] LABS: Appearance Clear (Clear); Bacteria None Seen /HPF (None Seen); Bilirubin Negative (Negative); Blood Negative (Negative); Epithelial Cells None Seen /HPF (None Seen); Glucose, Urine Negative (Negative); Hyaline Casts NONE SEEN /LPF (0-2); Ketones Trace (Negative); Leukocyte Esterase Negative (Negative); Nitrite Negative (Negative); Ph 5.5 (4.6-8.0); Protein,Urine Dip Negative (Negative); RBC 0-2 /HPF (0-5); Specific Gravity 1.025 (1.005-1.030); Urobilinogen 0.2 mg/dL (0.2); WBC 0-2 /HPF (0-5)
[2023-09-09 23:15] VITALS: BP 106/57; PULSE 70; RESP 18
[2023-09-09 23:18] LABS: ADD URINE CULTURE? NO (NO)
[2023-09-09 23:28] VITALS: O2SAT 97
== END 2023-09-09 23:56 | disposition home or self-care (01) ==
LOC: ED 20:56
DX: D69.2 Other nonthrombocytopenic purpura (principal); M79.604 Pain in right leg; M79.605 Pain in left leg; E78.5 Hyperlipidemia, unspecified; G35 Multiple sclerosis; Z79.01 Long term (current) use of anticoagulants; Z79.891 Long term (current) use of opiate analgesic; Z79.899 Other long term (current) drug therapy
CPT/HCPCS: 36415; 80053; 81001; 85025; 85610; 85730; 99283